=== PATIENT | male | born 1960 | race Caucasian/White ===

== ENCOUNTER 2024-04-15 12:30 | Emergency (ER) | payer BC ==
[~2024-04-15] VITALS: Ht 193 cm; Wt 98.0 kg
[2024-04-15] VITALS (8 sets, daily range): BP systolic 100–119; BP diastolic 71–82
[2024-04-15] MEDS ORDERED: NEOMYCIN-BACITRACIN-POLYMYXIN 0.5 GM/PAK PAK TOP ONE (14:25)
[2024-04-15] MEDS ORDERED: NAPROXEN 250 MG/TAB PO ONE (14:25)
[2024-04-15] MEDS ORDERED: NAPROXEN500 MG PO (14:31)
== END 2024-04-15 14:46 | disposition home or self-care (01) | DRG 605 ==
LOC: ED 12:30
DX: S80.212A Abrasion, left knee, initial encounter (principal); S80.02XA Contusion of left knee, initial encounter; W01.198A Fall on same level from slipping, tripping and stumbling with subsequent striking against other object, initial encounter